=== PATIENT | female | born 1960 | race Asian ===

== ENCOUNTER → 2017-04-07 | Outpatient (CLI) | payer OTHER ==
--- NOTE | ~2017-04-07 | MY29 ---
[facility] A Service of [facility] RADIOLOGY TEXT RESULTS PATIENT: KANDICE CHRISTY LOCATION: [facility] : 56 UNIT #: [id number] AGE: [address]: BIA MARR APRN SEX: F ORDER DR: [id number] [facility] [address] [place], [place] [address] [id number] O MR#: [id number] Acc #: [id number] NAME: KANDICE CHRISTY : 1960 SEX: F STUDY DATE/TIME: 04/07/2017 11:42 UNIT: [facility] ROOM: STUDY DESCRIPTION: MY ELBA SCREENING W/ CAD BILAT Attending Physician: Bia Marr Aprn Ordering Physician: Bia Marr Aprn Primary Care Physician: Bia Marr Aprn MEDICAL IMAGING REPORT This report is preliminary unless electronic signature is present EXAM Digital screening mammogram, 04/07/2017, [facility]. HISTORY 56-year-old woman; no risk elevation. Previous augmentation. COMPARISON 03/31/2010, 12/14/2011, 01/15/2015. FINDINGS Digital imaging of each breast was completed, utilizing conventional projections and standard Jignesh views. Review includes FDA-approved CAD device. Bilateral subpectoral saline implants are stable. Moderately dense fibroglandular parenchyma in each breast is stable with dominance projecting, lower hemisphere, right breast. This includes a clustered nodularity in the 6 o'clock axis. I see no suspicious mass characteristics. There are no interval occurring microcalcifications and no architectural deformity. IMPRESSION Stable benign mammogram. Bilateral retropectoral saline implants. Annual screening recommended. Patients over the age of 40 are entered into a reminder system with target due date for the next mammogram. A result letter will also be sent to the patient. BIRADS: 2 Benign finding. Dictated by... [facility] A Service of [facility] RADIOLOGY TEXT RESULTS PATIENT: KANDICE CHRISTY LOCATION: [facility] : 56 UNIT #: [id number] AGE: [address]: BIA MARR APRN SEX: F ORDER DR: Walter Hendrix M.D. THIS IS AN ELECTRONICALLY VERIFIED REPORT Walter Hendrix M.D. at 04/07/2017 2:18 PM Bryanna TD: 04/07/2017 14:02 JOB #: [id number] MEDICAL IMAGING REPORT Page 1 of 1 COPY
== END | disposition home or self-care (01) ==
LOC: CWCC 11:23
DX: Z12.31 Encounter for screening mammogram for malignant neoplasm of breast (principal); Z98.82 Breast implant status
CPT/HCPCS: G0202